=== PATIENT | female | born 1960 | race Caucasian/White ===

== ENCOUNTER 2024-06-01 17:09 | Inpatient (IN) | payer MEDICARE, OTHER, SELFPAY ==
[2024-06-01] VITALS (14 sets, daily range): BP systolic 120–172; BP diastolic 65–100; BMI 33.0
[2024-06-01 10:38] LABS: % Basophils 1.6 % (0-2); % Immature Granulocytes 0.2 % (0-0.5); % Lymphocytes 33.9 % (20.5-51.1); % Monocytes 11.2 % (1.7-9.3); % Neutrophils 50.1 % (42.2-75.2); Absolute Basophils 0.1 10^3/uL (0-0.2); Absolute Eosinophils 0.2 10^3/uL (0-0.7); Absolute Lymphocytes 1.9 10^3/uL (1.2-3.4); Absolute Monocytes 0.6 10^3/uL (0.1-0.6); Absolute Neutrophils 2.8 10^3/uL (1.4-6.5); Hematocrit 42.1 % (37.0-47.0); Hemoglobin 14.3 g/dL (12.0-16.0); Mean Corpuscular Hgb 29.8 pg (27.0-31.0); Mean Corpuscular Volume 87.7 fL (81.0-99.0); Mean Platelet Volume 10.3 fL (7.4-10.4); Nucleated Red Blood Cells % 0 %; Platelet Count 240 10^3/uL (130-400); Red Cell Dist. Width 13.2 % (11.5-14.5); White Blood Cell Count 5.6 10^3/uL (4.8-10.8)
--- NOTE | 2024-06-01 10:59 | ED.GENMED ---
History of Present Illness
General
Chief Complaint: Chest Pain
Source: patient and spouse
Exam Limitations: none
Time Seen by Provider: 06/01/24 10:15
Nursing documentation reviewed up to this point in time: agreed with
History of Present Illness
History of Present Illness:
Patient is a 63Y female who presents to the ER complaining of chest pain. Patient first noticed chest pain on Friday night after eating. It did resolve but she woke up early at 3 AM Friday morning with chest pain. She felt better yesterday
throughout the day but pain started again last night after eating(she had steak and vegetables) it did resolve but then after walking up a flight of steps later on in the night she developed chest pain again. This morning around 845 she felt pain
in the center of her chest and did feel pain in her jaw. At times she feels pain down left arm. She reports she 'just doesn't feel right .' She went to her family doctor's office and was sent here to the ER by EMS. She believes she may have
taken 1 aspirin at home and then was given 3 baby aspirin by her primary care physician. She currently still feels a little pressure in the center of her chest but this is much better than earlier this morning. She is not sure of the nitroglycerin
that was given to her by EMS helped her was told that her EKG today was different than her prior EKG done in 2017.
She is a former smoker and quit vaping nicotine several days ago.
No cardiac disease in family.
Review of Systems
Review of Systems
Allergies reviewed?: Yes
Other source history: family
All Other Systems: ROS reviewed and negative except as documented in HPI and ROS
Constitutional: Reports no symptoms; Denies fever, fatigue or chills
Respiratory: Reports trouble breathing (pt felt a little Short of breath with cp )
Cardiac: Reports chest pain; Denies diaphoresis, palpitations or syncope
ABD/GI: Reports no symptoms; Denies abdominal pain, nausea, vomiting or diarrhea
: Reports no symptoms
Musculoskeletal: Reports no symptoms
Skin: Reports no symptoms
Neurological: Reports no symptoms
Psychiatric: Reports no symptoms
Phy Exam
General Physical Exam
General Presentation: no apparent distress
General age: appears stated age
General Skin: warm and dry
General Habitus: normal
General Mental: alert
General Hydration: appears well hydrated
Eye Exam
Eye Exam: PERRL
Eye Exam General: PERRL: bilateral and EOM intact: bilateral
Pupil Exam: Bilateral: round and reactive
Cardiovascular Exam
Cardiovascular Exam: regular rate/rhythm, no murmur and normal peripheral pulses
Pulmonary Exam
Pulmonary Exam: lungs clear and no respiratory distress
Gastrointestinal Exam
Gastrointestinal Exam: non tender and soft
Neurological Exam
Neurological Exam: oriented x3
Scores
Heart Score for Chest Pain Patients
STEMI patient?: Not applicable
Course
Orders/Labs/Results
Orders:
Orders
06/01/24 10:06
Electrocardiogram (*1) Urgent
Reason for Study: Chest Pain
EKG- Treatment ONCE
06/01/24 10:20
Complete Blood Count/With Diff Urgent
06/01/24 11:04
Basic Metabolic Panel Urgent
Troponin I Urgent
06/01/24 11:35
Nitroglycerin Sublingual [Nitrostat (Sublingual)] 0.4 mg SL NOW STA
06/01/24 11:48
Electrocardiogram (*1) Urgent
Reason for Study: Chest Pain
06/01/24 12:18
Nitroglycerin Ointment [Nitro-Bid] 1 inch TOPICAL NOW STA
06/01/24 12:43
Chest [CR Chest - 2 Views ] Urgent
Comment:
Reason For Exam: cp
06/01/24 13:19
Electrocardiogram (*1) Stat
Reason for Study: Other
Other Reason for Exam: chest pain
EKG- Treatment ONCE
06/01/24 13:23
Troponin I Urgent
06/01/24 13:25
Echo 2D MMode Color/Doppler Urgent
Reason for Study: chest pain relieved w/ SL NTG
Cardiology Consult: Kathryn Foster
06/01/24 14:30
PTT Urgent
Comment: Obtain baseline before beginning heparin infusion if not already collected
Heparin 4,000 units IV NOW STA
Heparin 12187 Units/250 ml 25,000 units in 250 ml IV PER PROTOCOL
Weight to be used for heparin protocol in kilograms (kg):: 90
Protocol:: Cardiac Tx/Acute Coronary
PTT Goal Range to be used:: PTT 73 to 111 seconds
Order type:: Initial
INITIAL Infusion Dose (UNITS/KG/hr) & then follow protocol:: 15 units/kg/hr
Infusion Dose in UNITS/hr & then follow protocol (UNITS/hr):: 1,350
INFUSION RATE in mL/hr & then follow protocol (mL/hr):: 13.5
PTT less than or equal to 64 seconds:: Increase rate by 200 units/hr (+ 2 mL/hr)
PTT 64.1 to 72.9 seconds:: Increase rate by 100 units/hr (+ 1 mL/hr)
PTT 73 to 111 seconds:: Target Range. No change in rate.
PTT 111.1 to 130.9 seconds:: Decrease rate by 100 units/hr (- 1 mL/hr)
PTT 131 to 199.9 seconds:: HOLD for 1 hr. Then decrease rate by 200 units/hr (- 2 mL/hr)
PTT greater than or equal to 200 seconds:: HOLD for 2 hrs & Notify Provider. Then decrease by 200 units/hr (-
2 mL/hr)
Lab follow-up:: Each change, PTT q6h until 2 consecutive are therapeutic. Then PTT
daily.
Nursing to Place Non Medication Order As Directed
Physician Order: PTT 6 hours after initial start of Heparin infusion
06/01/24 14:32
Nitroglycerin Sublingual [Nitrostat (Sublingual)] 0.4 mg SL NOW STA
Abnormal Lab Results
06/01/24 06/01/24 06/01/24
10:20 11:04 13:23
Monocytes % 11.2 H %
(1.7-9.3)
BUN 19 H mg/dl
(7-17)
Glucose 105 H mg/dl
(70-99)
Troponin I 0.047 H* D ng/ml
06/01/24 10:20
06/01/24 11:04
Vital Signs
Initial and Last Documented VS:
Initial Vital Signs
Temp Pulse Resp BP Pulse Ox
97.8 F 62 16 145/73 99
06/01/24 10:07 06/01/24 10:07 06/01/24 10:07 06/01/24 10:07 06/01/24 10:07
Last Documented Vital Signs
Temp Pulse Resp BP Pulse Ox
97.8 F 73 13 172/88 98
06/01/24 10:07 06/01/24 14:30 06/01/24 14:30 06/01/24 14:35 06/01/24 14:30
MDM/Problems Addressed
Differential Diagnosis Includes:
Not limited to ACS. less likely reflux
MDM/Problems Addressed:
Pt is a 63 yr old female who has had intermittent chest pain since Friday for the past 2 days. It is radiated to her jaw and intermittently to her arm. Pain started again this morning she had an EKG at her doctor's office which was changed from
2017. EKG does show right bundle branch block. She has no shortness of breath. She was given a nitroglycerin while in the ambulance but was unsure if it helped her symptoms. Here patient reports pain started to increase and was up to a 4 out of
a 10. She was given 1 nitroglycerin here and feeling better. Stable blood pressure. initial troponin negative however will repeat troponin with patient's symptoms will admit and discuss with cardiology. does request, [facility] as he follows
with them.
Repeat cardiac troponin elevated to 0.047. Patient eval by cardiology. Patient back with intermittent chest pain. As per cardiology , Dr Foster will take to director of cath lab. IV heparin ordered. will give another nitro and d/c nitro paste.
pt to be adm to hosp service. d/c w/ DR Lee
Chronic conditions affecting care:
former smoker
*Radiology
Radiology exam reviewed: radiology read reviewed
*Pulse Oximetry
Patient hypoxic: no
*EKG
Interpreted by ED Provider?: Yes
Comparison EKG: no comparison EKG present
Heart Rate: 60
Rate: normal
Rhythm: sinus
QRS Pattern: right bundle branch block
*Critical Care Note
Total Time (30-74mins, 75-104mins- exclusive of procedures): Not Applicable
Patient Management
Discussion with other providers: Vocal Artist (cardiology )
ED Attending Note
-
Portions of this chart may have been created with voice recognition software.� Occasional wrong word or��sound alike� substitutions may have occurred due to the inherent limitations of voice recognition software.
Discharge Plan
Departure
Patient Disposition: Admit
Date of Disposition: 06/01/24
Time of Disposition: 14:38
Admit to: labor relations director
Admit to doctor: hospitalist
Presentation/result/management discussed w/ accepting MD/DO: Hospitalist
Patient with high blood pressure during this ER visit?: Yes
Covid-19: Not Applicable
Discharge Problem:
Acute non-ST elevation myocardial infarction (NSTEMI), Chest pain
Prescriptions:
No Action
levothyroxine [Synthroid] 100 mcg Tablet
100 mcg PO DAILY
doxycycline monohydrate 50 mg Capsule
50 mg PO DAILY
mupirocin 2 % Ointment
1 applic TOPICAL BID
aspirin 81 mg Tablet,Chewable
324 mg PO DAILYPRN PRN (Reason: CHEST PAIN)
Referrals:
Aris Duenas DO [Family Provider] -
Interventions
Interventions:
*Risk Screen - Suicide Last Done: 06/01/24 10:07
*General Assessment Last Done: 06/01/24 10:07
*Neglect/Abuse Screening Last Done: 06/01/24 10:07
ED- Fall Risk Assessment Last Done: 06/01/24 10:32
*ED COVID-19 Vaccine History Last Done: 06/01/24 10:32
ED- Cardiac Assessment Last Done: 06/01/24 10:32
Discharge Date and Time
Print Language: INDIAN
[2024-06-01 11:24] LABS: Blood Urea Nitrogen 19 mg/dl (7-17); Calcium 9.4 mg/dl (8.4-10.2); Carbon Dioxide 29 mmol/L (22-30); Chloride 104 mmol/L (98-107); Estimated Creatinine Clearance 87 ml/min; Glucose 105 mg/dl (70-99); Potassium 3.8 mmol/L (3.5-5.1); Sodium 141 mmol/L (135-145); eGFR > 60.00
[2024-06-01 11:36] LABS: Troponin I 0.032 ng/ml
[2024-06-01] MEDS: NITROSTAT (SUBLINGUAL) 0.4 MG SL ×2 (11:38→14:35)
[2024-06-01] MEDS: NITRO-BID 1 INCH TOPICAL (12:23)
[2024-06-01 14:02] LABS: Troponin I 0.047 ng/ml
--- NOTE | 2024-06-01 14:17 | CON.CAR ---
Addendum entered and electronically signed by Kathryn Foster MD 06/01/24 15:05:
I saw and examined the patient.
The Dermatology Physician's note was reviewed and I agree with the note.
Comment: Kirsten is a 63-year-old obese female with past medical history of hypothyroidism and former smoking, quit about 6-7 years ago who presents with 2-day history of off-and-on substernal chest discomfort, intermittently radiating under her
left breast and at times radiating to her jaw. Her symptoms are at times happening after intake of food but a lot of the other times are happening with exertion especially going a flight of stairs. She thought the symptoms would get better without
any interventions however he progressed over the weekend prompting her to come into the emergency department for further evaluation. Initial EKG showing sinus rhythm with right bundle branch block without acute ischemic changes. Troponin up
trended from 0.03 to up to 0.047 with intermittent recurrent chest discomfort despite 1 sublingual nitroglycerin which did seem to help with the chest discomfort.
Vital signs and lab work reviewed. On exam patient is in no acute distress, awake, alert and oriented x 3, regular rate, normal S1 and S2, lungs are clear to auscultation bilaterally, abdomen is obese but otherwise soft, nontender, nondistended
with active bowel sounds, warm extremities without significant edema.
Recommendations:
1. Given ongoing discomfort with symptoms concerning for typical angina especially with an exertional component slowly uptrending troponins, I would be concerned about a type I NSTEMI and therefore discussed pursuing invasive coronary angiogram to
rule out obstructive CAD.
2. Discussed with the emergency department about medically managing NSTEMI and had detailed discussion with patient in regards to risk and benefits of a heart catheterization and after detailed informed consent, patient was urgently taken to the
Head Concierge.
3. Further recommendations based on results of the heart catheterization.
4. Eventual echocardiogram to assess biventricular function and rule out significant valvular abnormalities.
5. Patient will be admitted to the hospitalist service.
Kathryn Foster MD, [facility]
Original Note:
Consultation
Consultation Request
Date/Time Consultation Requested: 06/01/2024
Date/Time Consultation Performed: 06/01/2024
Requesting Provider: Anna Munroe
Performing Provider: Nalini Quan PA-C for Dr. Foster
Reason for Consultation: chest pain x 2 days
Medical History
-
History of Present Illness:
Patient is a 63-year-old obese female with past medical history significant for hypothyroidism who presents to emergency department 06/01/2024 with 2 days of waxing and waning chest discomfort. Patient reports on 05/30/2024 she noted a discomfort in
her chest in the evening after eating dinner. Initially she thought it was indigestion. She went to bed that evening then awoke around 3 AM on 05/31/2024 with significant chest discomfort/pressure and took some antacids with some relief from
belching. The next day she noted waxing and waning chest discomfort. Once again after eating a meal of steak and vegetables pain became more intense and she started to note worsening chest pressure as well as shortness of breath with activities
like walking up steps. This morning 06/01/2023 patient notes significant chest discomfort associated with radiation into back, jaw and down left arm after dropping her grandson off at school. On presentation to emergency department she was provided
sublingual nitroglycerin with some improvement of chest pain but not complete resolution. EKG showed sinus rhythm with right bundle branch block. Initial troponin 0.032 however repeat troponin 0.047. Chest x-ray showed no acute cardiopulmonary
abnormality/process. Blood pressure initially 145/73. Due to ongoing symptoms with worsening of troponin patient started on heparin drip.
Past medical history:
Hypothyroidism
Past Medical History
Past Medical History: Other
Past Surgical History: (X 3)
Social History
Tobacco: Former Smoker (Quit 2017; was vaping up until 3 days prior to admission)
Alcohol: Occasional
Drug: None
Personal:
Living: With Family
Employment: Retired
Family History
Family History: Other (Paternal grandmother had coronary disease, maternal grandfather had pacemaker)
Allergies / Home Medications
Allergy/AdvReac Type Severity Reaction Status Date / Time
Penicillins Allergy Unknown Verified 06/01/24 10:07
�Medication �Instructions �Recorded �Confirmed �Type
aspirin 81 mg chewable tablet 324 mg PO DAILYPRN PRN CHEST PAIN 06/01/24 06/01/24 History
doxycycline monohydrate 50 mg 50 mg PO DAILY 06/01/24 06/01/24 History
capsule
levothyroxine 100 mcg tablet 100 mcg PO DAILY 06/01/24 06/01/24 History
(Synthroid)
mupirocin 2 % topical ointment 1 applic topical BID 06/01/24 06/01/24 History
Review of Systems
-
History Source: Patient
Physical Exam
Vital Signs
Temp Pulse Resp BP Pulse Ox
97.8 F 71 15 136/71 99
06/01/24 10:07 06/01/24 12:23 06/01/24 10:30 06/01/24 12:23 06/01/24 10:30
GEN: No distress, awake, Ox3, obese
HEENT: supple, anicteric, mmm
LUNGS: CTA, no wheezes/rales
CV: Reg, S1/S2, no murmur, rub or gallop
ABD: soft, BS+, NT/ND
EXT: No edema, clubbing or cyanosis
NEURO: Gross non-focal
SKIN: No rash, warm, dry, pink
Lab Results
06/01/24 10:20
06/01/24 11:04
Troponin I 0.047 ng/ml H* D 06/01/24 13:23
Impression / Plan
-
Oil Treater: None prior to arrival, initial consultation Dr. Foster
Impression:
Presented 06/01/2024 with 2 to 3 days of waxing and waning chest discomfort with associated shortness of breath, back and jaw pain
Abnormal troponin
Concern for NSTEMI
Hypothyroidism
History of tobacco abuse
x 3
Echo 06/01/2024: Ordered
Cardiac catheterization 06/01/2024: Pending
Plan:
-Presented 06/01/2024 with 2 to 3 days of waxing and waning chest discomfort with associated shortness of breath, back and jaw pain
-Initial troponin negative however repeat troponin 0.047, trend to peak
-continues to have 4-5 out of 10 chest discomfort despite nitroglycerin paste/patch raising concern for NSTEMI.
-Start IV heparin drip; load with ASA
-Discussed rationale for undergoing cardiac catheterization. Patient and spouse agreeable to proceed
-Echo ordered
-Will need to check lipids, not on statin prior to admission
Plan discussed with patient, patient's , emergency department physician/nurse practitioner
Data Reviewed
-
EKG: Report Reviewed by me, Discussed with Physician, Discussed with Patient and Discussed with Family
Radiology: Report Reviewed by me, Discussed with Physician, Discussed with Patient and Discussed with Family
Labs: Labs Reviewed by me, Discussed with Physician, Discussed with Patient and Discussed with Family
[2024-06-01] MEDS: HEPARIN 4000 UNITS IV (14:45)
--- NOTE | 2024-06-01 15:05 | ITS.CL.CATH ---
Orthopedic Cast Specialist - Catheterization
Cardiac Catheterization
Procedure Report:
LEFT HEART CATHETERIZATION AND CORONARY INTERVENTION
Date of Procedure: June 01, 2024
Referring: [place] emergency department
PROCEDURES:
1. Left heart catheterization, coronary angiogram.
2. Ultrasound-guided access.
3. Successful percutaneous coronary artery intervention of a hazy 90% mid left circumflex artery/OM2 stenosis with 2.75 x 15 mm Medtronic [place] frontier drug-eluting stent, postdilated using a 2.75 x 12 mm NC balloon at 18 adela with an excellent
angiographic result.
INDICATION: Concern for NSTEMI
ACCESS: Right radial artery, 6 Tristanian sheath, under ultrasound guidance.
HEMODYNAMICS : (mmHg)
AO (s/d) : 124/76
LV (s/d) : 134/8
LVEDP : 11
CORONARY FINDINGS
DOMINANCE: Right
LEFT MAIN: Left main artery is a large-caliber vessel which gives rise to the left anterior descending artery and the left circumflex artery. There is minimal luminal irregularities.
LEFT ANTERIOR DESCENDING: The left anterior descending artery is a medium to large caliber vessel which gives rise to 1 major diagonal branch as it courses through the anterior interventricular groove towards the apex. There is smooth 30% proximal
LAD stenosis.
CIRCUMFLEX: The left circumflex artery is a medium caliber vessel which gives rise to 2 major obtuse marginal branch. Mid left circumflex artery has a hazy 90% stenosis extending into OM 2 which is thought to be the culprit of presenting NSTEMI and
was intervened on.
RIGHT CORONARY ARTERY: The right coronary artery is a large-caliber, dominant vessel which has rise to the right posterior descending artery and the right posterolateral system. Distal RCA has a 50% focal stenosis.
CORONARY INTERVENTION: The left coronary artery was selectively engaged using a 6 Tristanian EBU 3.5 guide catheter. Additional heparin was given to maintain a therapeutic ACT throughout the case. A 190 cm 0.014' power turn flex coronary wire was
carefully navigated across the culprit lesion into OM 2. The lesion was predilated using a 2.5 x 12 mm semicompliant balloon at 14 adela with good expansion. The lesion was subsequently stented using a 2.75 x 15 mm Medtronic [place] frontier
drug-eluting stent and postdilated using a 2.75 x 12 mm NC trek balloon at 18 adela with an excellent angiographic result. Patient was loaded with 180 mg of Brilinta at the end of the case. No acute complications.
SEDATION: 49 minutes of procedural sedation was utilized. An independent medical assistant supervisor was present to assist with and help manage the patient's level of consciousness and physiologic status.
RADIATION SUMMARY: Fluoro Time (min): 10.2, Dose (mGy): 586.93, DAP (Gy.cm2) : 35.3
Closure Device: Vascular band over right radial artery, 10 cc of air.
CONCLUSIONS
1. Successful percutaneous coronary artery intervention of a hazy 90% mid left circumflex artery/OM2 stenosis with 2.75 x 15 mm Medtronic [place] frontier drug-eluting stent, postdilated using a 2.75 x 12 mm NC balloon at 18 adela with an excellent
angiographic result.
2. 50% focal distal RCA stenosis.
3. Normal LVEDP at 11 mmHg
RECOMMENDATIONS
1. Wean radial band per protocol.
2. Uninterrupted dual antiplatelet therapy in the setting of acute coronary syndrome with daily baby aspirin and Brilinta 90 mg twice daily along with high intensity statin and beta-sofiya as tolerated.
3. Full echocardiogram to assess biventricular function and rule out any significant valvular abnormalities.
4. Aggressive management of cardiovascular risk factors and goal-directed medical therapy for nonobstructive coronary artery disease.
5. Eventual referral for outpatient cardiac rehab.
Kathryn Foster MD, FAC, [facility]
[2024-06-01 15:10] LABS: APTT 29.1 Sec (23.4-35.0)
[2024-06-01 15:25] LABS: ACT-LR - POC 171 Seconds (116-155)
[2024-06-01 15:38] LABS: ACT-LR - POC 226 Seconds (116-155)
[2024-06-01 15:50] LABS: ACT-LR - POC 274 Seconds (116-155)
--- NOTE | 2024-06-01 16:39 | HPS.HSE ---
Family Physician
-
Family Physician: Aris Duenas
Chief Complaint
-
Chest pain
History of Present Illness
63 y/o F with PMHx:
Obesity due to excess calories, BMI 34
Acquired hypothyroidism
who p/w CC chest pain. Over the past few days the patient has had multiple episodes of stable angina. She has had retrosternal chest pain with exertion. She also had symptoms of indigestion. Today she walked her grandson into school and had
further retrosternal and left-sided chest pain that radiated into her jaw. She went to her primary care doctor's office. They did an ECG and gave her an aspirin and sent her to the hospital. Upon arrival to the hospital she had ongoing chest
pain. Her initial troponin was negative but her second troponin was positive. She was taken to the [facility] and was found to have a 90% occlusion of her left circumflex. A stent was placed. Currently she reports some pressure in her right chest
but states it could be related to neck stiffness in the 'bed and pillows here.' She feels overall better than when she arrived to the hospital. Currently denies shortness of breath, nausea, vomiting, diarrhea, headache, rash, strokelike symptoms.
Medical History
Past Medical History
Past Medical History: Reports Other (as per HPI)
Past Surgical History: Reports Other (N/A)
Social History
Tobacco: Former Smoker (quit 2017, was vaping until 3 days [employer] OPER[employer])
Alcohol: Occasional
Drug: None
Family History
Family History: Not pertinent
Allergies / Home Medications
Allergies reflects when Allergies were last updated in [employer].
Home Medications with original date entered in [employer]
Allergy/Medication List:
Allergies
Allergy/AdvReac Type Severity Reaction Status Date / Time
Penicillins Allergy Unknown Verified 06/01/24 10:07
Home Medications
aspirin 81 mg chewable tablet 324 mg PO DAILYPRN PRN CHEST PAIN 06/01/24
doxycycline monohydrate 50 mg capsule 50 mg PO DAILY 06/01/24
levothyroxine 100 mcg tablet (Synthroid) 100 mcg PO DAILY 06/01/24
mupirocin 2 % topical ointment 1 applic topical BID 06/01/24
Review of Systems
-
A 12 point ROS was completed and negative except as noted: Yes
Constitutional: Reports No Symptoms
Physical Exam
Vital Signs
Vital Signs
Temp Pulse Resp BP Pulse Ox
97.8 F 62 18 120/100 97
06/01/24 10:07 06/01/24 16:35 06/01/24 15:00 06/01/24 16:35 06/01/24 16:35
Physical Exam
General: Other (.)
Laboratory Results
-
06/01/24 10:20
06/01/24 11:04
Laboratory Results
APTT 29.1 Sec (23.4-35.0) 06/01/24 14:35
Total Bilirubin Cancelled 06/01/24 10:20
AST Cancelled 06/01/24 10:20
ALT Cancelled 06/01/24 10:20
Alkaline Phosphatase Cancelled 06/01/24 10:20
Troponin I 0.047 ng/ml H* D 06/01/24 13:23
Impression/Plan
-
Gen: NAD, AAOx3.
Eyes: EOMI, PERRLA, no scleral icterus.
Neck: supple.
CV: RRR, +S1/S2, no m/r/g.
Resp: CTAB, no rales, wheezes, or rhonchi.
Abd: +BS, soft, NT, ND
Skin: No rashes.
Neuro: CN 2-12 intact, non-focal.
Psych: Normal mood and affect.
ECG (read by me): NSR @ 65, L-axis deviation, RBBB, TW flattening III, aVF, TWi V1-V2
Type I NSTEMI:
-trop increased to 0.047. As pt was having ongoing CP she was taken to cath and was found to have 90% lesion in LCx, stented
-cont ASA/Brilinta/BB/statin
-cont heparin gtt
-check echo
-trend trop
-monitor on tele
Obesity due to excess calories:
-Affects all aspects of care
-Encourage weight loss
Acquired hypothyroidism:
-Continue Levoxyl
FULL/Heparin gtt
[2024-06-01] MEDS: NSS 1000 IV (17:13)
[2024-06-01] MEDS: LIPITOR 80 MG PO (17:48)
[2024-06-01] MEDS: LOVENOX SC (17:48)
--- NOTE | 2024-06-01 19:38 | PTCARENOTE ---
Received pt post cath. Right radial site w/ R band intact. VSS. Pt denies any chest pain. Orders noted. Will monitor.
[2024-06-02] MEDS: SYNTHROID 100 MCG PO (04:53)
[2024-06-02 04:55] LABS: Hematocrit 33.7 % (37.0-47.0); Hemoglobin 11.7 g/dL (12.0-16.0); Mean Corp Hgb Conc. 34.7 g/dL (33.0-37.0); Mean Corpuscular Hgb 29.1 pg (27.0-31.0); Mean Corpuscular Volume 83.8 fL (81.0-99.0); Mean Platelet Volume 10.1 fL (7.4-10.4); Platelet Count 224 10^3/uL (130-400); Red Blood Cell Count 4.02 10^6/uL (4.20-5.40); Red Cell Dist. Width 13.4 % (11.5-14.5); White Blood Cell Count 6.7 10^3/uL (4.8-10.8)
[2024-06-02 05:25] LABS: Troponin I 0.514 ng/ml
[2024-06-02 05:26] LABS: Blood Urea Nitrogen 16 mg/dl (7-17); Calcium 9.1 mg/dl (8.4-10.2); Carbon Dioxide 25 mmol/L (22-30); Chloride 107 mmol/L (98-107); Estimated Creatinine Clearance 86 ml/min; Glucose 103 mg/dl (70-99); HDL Cholesterol 46 mg/dl; LDL Cholesterol, Calculated 117 mg/dl; Potassium 3.8 mmol/L (3.5-5.1); Sodium 141 mmol/L (135-145); Total Cholesterol 192 mg/dl (50-199); Triglyceride 145 mg/dl (10-149); Very Low Density Lipoprotein 29 mg/dl (0-30); eGFR > 60.00
[2024-06-02 06:36] VITALS: BP 116/67
[2024-06-02 08:16] VITALS: BP 110/97
[2024-06-02] MEDS: BRILINTA 90 MG PO ×2 (08:47→20:17)
[2024-06-02] MEDS: TOPROL XL 25 MG PO (08:47)
[2024-06-02] MEDS: VIBRAMYCIN 50 MG PO (08:47)
[2024-06-02] MEDS: LOW STRENGTH ASPIRIN 81 MG PO (08:47)
--- NOTE | 2024-06-02 09:21 | PTCARENOTE ---
Rec'd pt this shift awake and alert. Pt denies pain, denies sob. Rt radial site EMMA, no bleeding noted. AM meds given. NSR on monitor. See worklist for VS/I and O and assessments.
--- NOTE | 2024-06-02 09:46 | W.PN.CARDCBS ---
Addendum entered and electronically signed by Kathryn Foster MD 06/02/24 11:12:
I saw and examined the patient.
The Merchandise Worker's note was reviewed and I agree with the note.
Comment: Overall patient is doing well with no acute issues overnight. Her dressing on the wrist felt a bit tight and was taken off this morning and her discomfort has resolved since then. She has been walking within the room with no recurrent
symptoms.
Vital signs and lab work reviewed. Troponin slowly continue to trend up. On exam patient is awake, alert, oriented x 3, regular rate, normal S1 and S2, no murmurs, rubs or gallops, abdomen is soft, nontender, nondistended with active bowel sounds,
lungs are clear to auscultation bilaterally, warm extremities without significant edema.
.
Recommendations:
1. Given presentation of NSTEMI/ACS, patient will be on uninterrupted dual antiplatelet therapy for recent mid left circumflex/OM 2 PCI. She will continue high intensity statin and beta-sofiya as tolerated.
2. Continue to trend Trops until peak.
3. Echocardiogram completed earlier today which was reviewed by me showing normal biventricular function without significant valvular abnormalities.
4. Continue to monitor on telemetry with anticipated discharge home tomorrow.
3. Encourage ambulation and referral for outpatient cardiac rehab.
Kathryn Foster MD, [facility], [facility]
Original Note:
Today's Communication / Plan
-
s/p circ/OM PCI
trend trops to peak
echo
asa, brilinta, statin, toprol
cardiac rehab
Impression / Plan
-
Cardboard Cutter: None prior to arrival, initial consultation Dr. Foster
Impression:
Presented 06/01/2024 with 2 to 3 days of waxing and waning chest discomfort with associated shortness of breath, back and jaw pain
NSTEMI s/p circ/OM PCI 06/01/24
RBBB
Hypothyroidism
History of tobacco abuse
x 3
Family history of CAD
Echo 06/01/2024: Ordered
Plan:
-Presented 06/01/2024 with 2 to 3 days of waxing and waning chest discomfort with associated shortness of breath, back and jaw pain
-Status post cardiac catheterization 06/01/2024 with subtotally occluded circumflex/OM status post successful stenting. Residual 50% RCA lesion, plan for medical management
-Right wrist site clean dry and intact, with mild ecchymoses and soreness reported by patient
-Continue aspirin, Brilinta. Hemoglobin 11.7
-LDL 117. Continue high intensity statin started this admission
-In sinus rhythm on review of telemetry overnight. Continue Toprol
-Awaiting echo
-Cardiac rehab
-Discussed dietary modifications, had been on keto diet prior to admission and successfully lost 30 pounds
-Likely for discharge in a.m.
-Discussed with patient and family at bedside
Progress Note - Cardboard Cutter
Subjective
Date of Service: June 02, 2024
No issues overnight
Objective
Labs:
06/02/24 04:36
06/02/24 04:36
Labs
Hgb 11.7 g/dL (12.0-16.0) L 06/02/24 04:36
Hct 33.7 % (37.0-47.0) L 06/02/24 04:36
Plt Count 224 10^3/uL (130-400) 06/02/24 04:36
APTT 29.1 Sec (23.4-35.0) 06/01/24 14:35
Sodium 141 mmol/L (135-145) 06/02/24 04:36
Potassium 3.8 mmol/L (3.5-5.1) 06/02/24 04:36
BUN 16 mg/dl (7-17) 06/02/24 04:36
Creatinine 0.7 mg/dL (0.6-1.0) 06/02/24 04:36
Glucose 103 mg/dl (70-99) H 06/02/24 04:36
Troponins
06/01/24 06/01/24 06/01/24
10:20 11:04 13:23
Troponin I Cancelled 0.032 0.047 H* D
06/01/24 06/02/24
20:00 04:36
Troponin I 0.200 H* D 0.514 H*
Vital Signs and I&O:
Vital Signs
Temp Pulse Resp BP Pulse Ox
98.3 F 67 20 110/87 98
06/02/24 08:17 06/02/24 09:00 06/02/24 08:17 06/02/24 08:47 06/02/24 09:15
Vital Signs
Temp Pulse Resp BP Pulse Ox
98.3 F 67 20 110/87 98
06/02/24 08:17 06/02/24 09:00 06/02/24 08:17 06/02/24 08:47 06/02/24 09:15
Intake & Output
05/31/24 06/01/24 06/02/24 06/03/24
07:59 07:59 07:59 07:59
Intake Total 870 / 870 500 / 500
Balance 870 / 870 500 / 500
Physical Exam
Physical Exam
GEN: No distress, awake, alert, oriented x3
HEENT: supple, anicteric, mmm, eomi
LUNGS: CTA B/L, no wheezes/rales
CV: Reg, S1/S2, no murmur
ABD: soft, BS+, NT/ND
EXT: No cyanosis, clubbing, edema
NEURO: Gross non-focal
SKIN: Warm, pink, dry. No rash. R wrist site soft, c/d/i, mild ecchymoses
--- NOTE | 2024-06-02 10:51 | CM ---
Addendum entered by Essence Robert RN 06/02/24 14:14:
Patient is agreeable to cost.
Original Note:
Pricing on Brilinta is $221.00 a month. Patient has already met their $280 deductible.
--- NOTE | 2024-06-02 11:09 | W.CARD.POSTP ---
Post PCI Follow Up
Procedure
Procedure/Date: 06/01/2024: Successful PCI of a hazy 90% mid left circumflex artery/OM2 stenosis with 2.75 x 15 mm Medtronic [place] DARCIE x1
Subjective: no cp, sob
Site
Site: Radial: Right and No ht/bleeding, distal pulses palpable (mild ecchymosis)
Tele / EKG
SR RBBB no ectopy
Labs
06/02/24 04:36
06/02/24 04:36
APTT 29.1 Sec (23.4-35.0) 06/01/24 14:35
Triglycerides 145 mg/dl (10-149) 06/02/24 04:36
LDL Cholesterol, Calc 117 mg/dl 06/02/24 04:36
VLDL Cholesterol, Calc 29 mg/dl (0-30) 06/02/24 04:36
HDL Cholesterol 46 mg/dl 06/02/24 04:36
DAPT Medication
DAPT Medication: Aspirin 81mg daily and Tricagrelor 90 mg BID
Case Management checking parr: Yes (cost $221/mo, will need to discuss if affordable, if not switch to plavix)
Plan
NSTEMI
DAPT but Brilinta $221, will need to switch to Plavix with 600mg load in am followed by 75mg daily if unable to afford brilinta
Echo pending
f/u DCA 06/28 @10:40
[2024-06-02 11:14] VITALS: BP 153/76
--- NOTE | 2024-06-02 11:20 | W.PN.HOSP.TC ---
Today's Communication/Plan
-
see bold
Assessment / Plan
Assessment / Plan
Gen: NAD, AAOx3.
Eyes: EOMI, PERRLA, no scleral icterus.
Neck: supple.
CV: araceli reg rhythm, +S1/S2, no m/r/g.
Resp: CTAB, no rales, wheezes, or rhonchi.
Abd: +BS, soft, NT, ND
Skin: No rashes.
Neuro: CN 2-12 intact, non-focal.
Psych: Normal mood and affect.
ECG (read by me): NSR @ 65, L-axis deviation, RBBB, TW flattening III, aVF, TWi V1-V2
Echo: EF 55-60%, normal RV sz/fxn, trace TR
Type I NSTEMI:
-trop increased to 0.047. As pt was having ongoing CP she was taken to cath and was found to have 90% lesion in LCx, stented
-cont ASA/Brilinta/BB/statin
-Echo above
-trend trop, most recent trop 0.514
-monitor on tele
Obesity due to excess calories:
-Affects all aspects of care
-Encourage weight loss
Acquired hypothyroidism:
-Continue Levoxyl
Pt's updated at bedside.
FULL/Lovenox
Anticipated Discharge: Within 24 hours
Subjective/Interval History
-
Date of Service: June 02, 2024
Denies CP/SOB. c/o headache.
Objective Data
-
Labs:
Laboratory Results
06/02/24
04:36
WBC 6.7
Hgb 11.7 L
Hct 33.7 L
Plt Count 224
Sodium 141
Potassium 3.8
Chloride 107
Carbon Dioxide 25
BUN 16
Creatinine 0.7
Glucose 103 H
Calcium 9.1
Vital Signs:
Vital Signs
Temp Pulse Resp BP Pulse Ox
98.3 F 67 20 110/87 98
06/02/24 08:17 06/02/24 09:00 06/02/24 08:17 06/02/24 08:47 06/02/24 09:15
I&O
06/01/24 06/02/24 06/03/24
06:59 06:59 06:59
Intake Total 870 / 870 500 / 500
Balance 870 / 870 500 / 500
[2024-06-02 11:32] LABS: Glycohemoglobin (HgbA1c) 5.2 % (4.0-5.6)
[2024-06-02 11:44] LABS: Troponin I 0.403 ng/ml
[2024-06-02 15:02] VITALS: BP 128/84
[2024-06-02] MEDS: LOVENOX 40 MG SC (17:54)
[2024-06-02] MEDS: LIPITOR 80 MG PO (17:54)
[2024-06-02] MEDS: TYLENOL 650 MG PO (18:05)
[2024-06-02 18:32] VITALS: BP 131/93
[2024-06-02] MEDS: COLACE 100 MG PO (20:48)
[2024-06-02 22:32] VITALS: BP 130/72
[2024-06-03 04:14] VITALS: BP 134/62
[2024-06-03] MEDS: SYNTHROID 100 MCG PO (04:25)
--- NOTE | 2024-06-03 04:31 | PTCARENOTE ---
Pt AAOx3 VSS NSR on monitor. Denies any pain, discomfort or SOB. Independently ambulating outside the room.
[2024-06-03 05:01] LABS: Hematocrit 34.6 % (37.0-47.0); Mean Corp Hgb Conc. 34.7 g/dL (33.0-37.0); Mean Corpuscular Hgb 29.2 pg (27.0-31.0); Mean Corpuscular Volume 84.2 fL (81.0-99.0); Mean Platelet Volume 10.5 fL (7.4-10.4); Platelet Count 229 10^3/uL (130-400); Red Blood Cell Count 4.11 10^6/uL (4.20-5.40); Red Cell Dist. Width 13.3 % (11.5-14.5)
[2024-06-03 05:25] LABS: Blood Urea Nitrogen 16 mg/dl (7-17); Calcium 9.4 mg/dl (8.4-10.2); Carbon Dioxide 24 mmol/L (22-30); Chloride 104 mmol/L (98-107); Estimated Creatinine Clearance 86 ml/min; Glucose 98 mg/dl (70-99); Sodium 140 mmol/L (135-145); eGFR > 60.00
[2024-06-03 06:54] VITALS: BP 125/67
[2024-06-03] MEDS: TOPROL XL 25 MG PO (07:28)
[2024-06-03] MEDS: LOW STRENGTH ASPIRIN 81 MG PO (07:28)
[2024-06-03] MEDS: BRILINTA 90 MG PO (07:29)
[2024-06-03] MEDS: VIBRAMYCIN 50 MG PO (07:32)
[2024-06-03] MEDS: COLACE 100 MG PO (07:36)
--- NOTE | 2024-06-03 07:47 | W.PN.HOSP.TC ---
Today's Communication/Plan
-
d/c
Assessment / Plan
Assessment / Plan
Gen: NAD, AAOx3.
Eyes: EOMI, PERRLA, no scleral icterus.
Neck: supple.
CV: RRR, +S1/S2, no m/r/g.
Resp: remains CTAB, no rales, wheezes, or rhonchi.
Abd: +BS, soft, NT, ND
Skin: No rashes.
Neuro: remains CN 2-12 intact, non-focal.
Psych: Normal mood and affect.
ECG (read by me): NSR @ 65, L-axis deviation, RBBB, TW flattening III, aVF, TWi V1-V2
Echo: EF 55-60%, normal RV sz/fxn, trace TR
Type I NSTEMI:
-trop increased to 0.047. As pt was having ongoing CP she was taken to cath and was found to have 90% lesion in LCx, stented
-cont ASA/Brilinta/BB/statin
-Echo above
-trop peaked post-cath at 0.514, now trending down
-cleared for d/c by cardiology
Obesity due to excess calories:
-Affects all aspects of care
-Encourage weight loss
Acquired hypothyroidism:
-Continue Levoxyl
FULL/Lovenox
Total time spent on d/c = 31 min. This included today's physical exam, progress note, review of laboratory and diagnostic data, preparation of discharge documents and prescriptions, and discussions about the pt's hospital course and discharge plan
with the patient and other medical transcription supervisor involved in the patient's care.
Anticipated Discharge: Today
Subjective/Interval History
-
Date of Service: June 03, 2024
Denies CP/SOB.
Objective Data
-
Labs:
Laboratory Results
06/03/24
04:21
WBC 7.0
Hgb 12.0
Hct 34.6 L
Plt Count 229
Sodium 140
Potassium 4.0
Chloride 104
Carbon Dioxide 24
BUN 16
Creatinine 0.7
Glucose 98
Calcium 9.4
Vital Signs:
Vital Signs
Temp Pulse Resp BP Pulse Ox
98.5 F 61 20 134/62 96
06/03/24 06:52 06/03/24 04:14 06/03/24 06:52 06/03/24 04:14 06/03/24 06:52
I&O
06/02/24 06/03/24 06/04/24
06:59 06:59 06:59
Intake Total 870 / 870 1800 / 1800
Balance 870 / 870 1800 / 1800
--- NOTE | 2024-06-03 08:20 | W.PN.CARDCBS ---
Addendum entered and electronically signed by Glenroy Martin MD 06/03/24 10:01:
Attending addendum: Patient seen and examined. PA note reviewed and findings independently confirmed by me. Briefly, this is a 63-year-old female who presented with 2 to 3-day history of waxing and waning chest tightness and elevated troponin.
She was referred for coronary angiography and underwent successful stenting of the circumflex with a 2.75 x 15 mm Medtronic [place] stent. She is now felt to be stable for discharge. She has been feeling well. Her Brilinta cost approximately $200
per month. She would like to maintain Brilinta at this time. It is possible that we can de-escalate therapy in 2 to 3 months to clopidogrel. For now, however, she will stay on the present. We discussed the need to remain compliant with dual
antiplatelet therapy including aspirin and the Brilinta. High intensity statin. Continue oral beta-sofiya.
Gen: awake, alert, oriented. NAD
HEENT: NC/AT, scelera anicteric
CV: RRR
Lungs: Clear anteriorly
Ext: No edema
Stable for discharge.
Aspirin on discharge was listed as PRN. This should be changed to aspirin 81mg daily
Original Note:
Today's Communication / Plan
-
continue asa, brilinta, toprol, lipitor
ok for DC from cardiac standpoint
cardiac rehab
OP cardiac followup arranged
Impression / Plan
-
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 Foster
Impression:
Presented 06/01/2024 with 2 to 3 days of waxing and waning chest discomfort with associated shortness of breath, back and jaw pain
NSTEMI s/p circ/OM PCI 06/01/24
RBBB
Hypothyroidism
History of tobacco abuse
x 3
Family history of CAD
Echo 06/01/2024: Technically difficult study, EF 55 to 60%, mild concentric LVH, MAC, mild MR, aortic sclerosis, trace TR
Plan:
-Presented 06/01/2024 with 2 to 3 days of waxing and waning chest discomfort with associated shortness of breath, back and jaw pain. trop peaked at 0.5
-Status post cardiac catheterization 06/01/2024 with subtotally occluded circumflex/OM status post successful stenting. Residual 50% RCA lesion, plan for medical management
-Right wrist site clean dry and intact
-Continue aspirin, Brilinta. patient agreeable to cost. Hemoglobin 12
-LDL 117. Continue high intensity statin started this admission
-In sinus rhythm on review of telemetry overnight. Continue Toprol
-echo with results as above, discussed with patient 06/03
-Cardiac rehab
-ok for DC today. OP cardiac follow up arranged
-d/w hospitalist via TT
Progress Note - Teacher Of The Deaf
Subjective
Date of Service: June 03, 2024
Did not sleep well. Otherwise doing well post stenting. No complaints
Objective
Labs:
06/03/24 04:21
06/03/24 04:21
Labs
Hgb 12.0 g/dL (12.0-16.0) 06/03/24 04:21
Hct 34.6 % (37.0-47.0) L 06/03/24 04:21
Plt Count 229 10^3/uL (130-400) 06/03/24 04:21
APTT 29.1 Sec (23.4-35.0) 06/01/24 14:35
Sodium 140 mmol/L (135-145) 06/03/24 04:21
Potassium 4.0 mmol/L (3.5-5.1) 06/03/24 04:21
BUN 16 mg/dl (7-17) 06/03/24 04:21
Creatinine 0.7 mg/dL (0.6-1.0) 06/03/24 04:21
Glucose 98 mg/dl (70-99) 06/03/24 04:21
Troponins
06/01/24 06/01/24 06/01/24
10:20 11:04 13:23
Troponin I Cancelled 0.032 0.047 H* D
06/01/24 06/02/24 06/02/24
20:00 04:36 11:01
Troponin I 0.200 H* D 0.514 H* 0.403 H*
Vital Signs and I&O:
Vital Signs
Temp Pulse Resp BP Pulse Ox
98.5 F 61 20 134/62 96
06/03/24 06:52 06/03/24 04:14 06/03/24 06:52 06/03/24 04:14 06/03/24 06:52
Vital Signs
Temp Pulse Resp BP Pulse Ox
98.5 F 61 20 134/62 96
06/03/24 06:52 06/03/24 04:14 06/03/24 06:52 06/03/24 04:14 06/03/24 06:52
Intake & Output
06/01/24 06/02/24 06/03/24 06/04/24
07:59 07:59 07:59 07:59
Intake Total 870 / 870 1800 / 1800
Balance 870 / 870 1800 / 1800
Physical Exam
Physical Exam
GEN: No distress, awake, alert, oriented x3
HEENT: supple, anicteric, mmm, eomi
LUNGS: CTA B/L, no wheezes/rales
CV: Reg, S1/S2, no murmur
ABD: soft, BS+, NT/ND
EXT: No cyanosis, clubbing, edema
NEURO: Gross non-focal
SKIN: Warm, pink, dry. No rash. R wrist site soft, c/d/i, mild ecchymoses
--- NOTE | 2024-06-03 10:55 | PTCARENOTE ---
Pt received with no c/o of chest pain or sob. OOB independently. Right radial site WNL and open to air. Pt discharged to home with her . Discharge instructions given and reviewed with good understanding.
--- NOTE | 2024-06-03 13:05 | W.DCSUMMARY ---
Discharge Summary
Discharge Data
Date of Admission: 06/01/24
Date of Discharge: 06/03/24
-
Pending Results: No
Hospital Course
Primary diagnoses:
Acute Type I [id number] myocardial infarction
Angioplasty with stent to left circumflex artery
Secondary diagnoses:
Obesity due to excess calories:
Acquired hypothyroidism
Consultants:
Cardiology
Imaging:
ECG (read by me): NSR @ 65, L-axis deviation, RBBB, TW flattening III, aVF, TWi V1-V2
Echo: EF 55-60%, normal RV sz/fxn, trace TR
Hospital course: 63-year-old female who presented with a chief complaint of chest pain as outlined in the H&P done on admission. On admission the patient's troponin increased to 0.047. She was having ongoing chest pain and was immediately taken to
the Sewing Machine Tester. She was found to have a 90% lesion in the LCx which was stented. She was treated with ASA/Brilinta/BB/statin. Echo above. Troponin peaked post-cath at 0.514 and then trended down. She was cleared for discharge by cardiology.
Discharge Plan
-
Patient Disposition: Home (Routine Discharge)
Discharge Diagnosis/Procedures: Acute uaj-BU-snjajyvvd myocardial infarction, Angioplasty with stent to left circumflex artery
Diet: Low Cholesterol
Driving Restrictions: No driving for 24 hours
Other Services: Cardiac Rehab
Stand Alone Forms: DC Instructions- Cath/EP Lab
Referrals:
[facility] [Outside] - 06/22/24 11:00 am
(Cardiac Rehab Orientation and First Exercise appointment is on Saturday June 22, 2024 at 11 AM. Please complete preadmission surveys via email prior to arrival.
The Cardiac Rehab gym is located on the first floor of the [facility].)
Erika Tariq CRNP [Specified Professional Personl] - 06/28/24 10:40 am
Aris Duenas DO [Family Provider] - in one to two months
Additional Discharge Medication Instructions: Take aspirin and brilinta every day!
Prescriptions:
New
doxycycline hyclate 50 mg Capsule
50 mg PO DAILY Qty: 0 0RF
Brilinta 90 mg Tablet
90 mg PO BID Qty: 60 0RF
atorvastatin 80 mg Tablet
80 mg PO QPM Qty: 30 0RF
metoprolol succinate 25 mg Tablet Extended Release 24 Hr
25 mg PO DAILY Qty: 30 0RF
aspirin 81 mg Tablet,Chewable
81 mg PO DAILY Qty: 0 0RF
Continued
levothyroxine [Synthroid] 100 mcg Tablet
100 mcg PO DAILY
mupirocin 2 % Ointment
1 applic TOPICAL BID
Discontinued
aspirin 81 mg Tablet,Chewable
81 mg PO DAILYPRN PRN (Reason: CHEST PAIN)
Discharge Orders:
Discharge Patient (As Directed); Ordered 06/03/24
Ordered By: Austen Lee
Care Plan Goals
Care Plan Goals:
Problem: Readiness for enhanced knowledge related to diagnosis and treatment plan
Goal: Understand your diagnosis and treatment plan needs, including medications if applicable.
Instructions: Know your diagnosis, underlying causes and treatment plan options, including medications if applicable. Consult with your health care team to learn about your diagnosis and treatment plan, including medications if applicable.
Discharge Date and Time
Discharge Date/Time: 06/03/24 11:17
Print Language: ZAMBIAN
== END 2024-06-03 11:17 | disposition home or self-care (01) | DRG 322 ==
LOC: IVU 17:09
PROVIDERS: Nurse Practitioner; Nurse Practitioner Adult Health; ADMITTING PHYSICIAN Internal Medicine; EMERGENCY PHYSICIAN Emergency Medicine; FAMILY PHYSICIAN Family Medicine; OTHER PHYSICIAN Internal Medicine Interventional Cardiology
PROC: B2111ZZ Fluoroscopy of Multiple Coronary Arteries using Low Osmolar Contrast (ICD-10-PCS; 2024-06-01)
PROC: 027034Z Dilation of Coronary Artery, One Artery with Drug-eluting Intraluminal Device, Percutaneous Approach (ICD-10-PCS; 2024-06-01)
PROC: 4A023N7 Measurement of Cardiac Sampling and Pressure, Left Heart, Percutaneous Approach (ICD-10-PCS; 2024-06-01)
DX: I21.4 Non-ST elevation (NSTEMI) myocardial infarction (principal); E03.9 Hypothyroidism, unspecified; E66.09 Other obesity due to excess calories; Z68.34 Body mass index [BMI] 34.0-34.9, adult; I45.10 Unspecified right bundle-branch block; I25.118 Atherosclerotic heart disease of native coronary artery with other forms of angina pectoris; R03.0 Elevated blood-pressure reading, without diagnosis of hypertension; Z79.890 Hormone replacement therapy; Z79.899 Other long term (current) drug therapy; Z87.891 Personal history of nicotine dependence; Z88.0 Allergy status to penicillin
CPT/HCPCS: 71046; 80048; 80061; 83036; 84484; 85025; 85027; 85730; 93005; 93306; 93458; 96374; 99152; 99153; 99285; 99406; C1725; C1874; C1894; C9600; Q9967

== ENCOUNTER 2024-06-24 10:39 | Outpatient (RCR) | payer MEDICARE, OTHER, SELFPAY | END 2024-06-24 23:59 | disposition home or self-care (01) | LOC: CRHB 10:39 | PROVIDERS: ATTENDING PHYSICIAN Internal Medicine Interventional Cardiology | DX: I25.10 Atherosclerotic heart disease of native coronary artery without angina pectoris (principal); Z95.5 Presence of coronary angioplasty implant and graft; I25.2 Old myocardial infarction | CPT/HCPCS: G0422; G0423 ==

== ENCOUNTER → 2024-06-28 12:20 | Outpatient (REF) | payer MEDICARE, OTHER, SELFPAY | LOC: RAD 12:20 | PROVIDERS: ATTENDING PHYSICIAN Nurse Practitioner; FAMILY PHYSICIAN Family Medicine | DX: I72.9 Aneurysm of unspecified site (principal); R60.9 Edema, unspecified | CPT/HCPCS: 93931 ==

== ENCOUNTER → 2024-07-14 07:49 | Outpatient (REF) | payer MEDICARE, OTHER, SELFPAY | LOC: DHCBC/DCA 07:49 | PROVIDERS: ATTENDING PHYSICIAN Nurse Practitioner; FAMILY PHYSICIAN Family Medicine | DX: R06.02 Shortness of breath (principal); R07.89 Other chest pain | CPT/HCPCS: 78452; 93017; A9500; J2785 ==

== ENCOUNTER 2024-07-28 13:40 | Outpatient (RCR) | payer MEDICARE, OTHER, SELFPAY | END 2024-07-28 23:59 | disposition home or self-care (01) | LOC: CRHB 13:40 | PROVIDERS: ATTENDING PHYSICIAN Internal Medicine Interventional Cardiology | DX: I25.10 Atherosclerotic heart disease of native coronary artery without angina pectoris (principal); Z95.5 Presence of coronary angioplasty implant and graft; I25.2 Old myocardial infarction | CPT/HCPCS: G0422; G0423 ==

== ENCOUNTER 2024-08-19 10:09 | Outpatient (RCR) | payer MEDICARE, OTHER, SELFPAY | END 2024-08-19 23:59 | disposition home or self-care (01) | LOC: CRHB 10:09 | PROVIDERS: ATTENDING PHYSICIAN Internal Medicine Interventional Cardiology | DX: I25.2 Old myocardial infarction (principal); Z95.5 Presence of coronary angioplasty implant and graft | CPT/HCPCS: G0422; G0423 ==

== ENCOUNTER 2024-09-09 10:59 | Outpatient (RCR) | payer MEDICARE, OTHER, SELFPAY | END 2024-09-09 23:59 | disposition home or self-care (01) | LOC: CRHB 10:59 | PROVIDERS: ATTENDING PHYSICIAN Internal Medicine Interventional Cardiology | DX: I25.2 Old myocardial infarction (principal); Z95.5 Presence of coronary angioplasty implant and graft | CPT/HCPCS: G0422; G0423 ==

== ENCOUNTER → 2025-01-11 10:13 | Outpatient (REF) | payer MEDICARE, OTHER, SELFPAY | LOC: HWRCS 10:13 | PROVIDERS: ATTENDING PHYSICIAN Internal Medicine Interventional Cardiology; FAMILY PHYSICIAN Family Medicine | DX: R07.89 Other chest pain (principal); R06.09 Other forms of dyspnea | CPT/HCPCS: 93306 ==

== ENCOUNTER 2025-07-31 21:26 | Emergency (ER) | payer MEDICARE, OTHER, SELFPAY ==
[2025-07-31 21:28] VITALS: BP 160/74
--- NOTE | 2025-07-31 22:57 | ED.GENMED ---
History of Present Illness
General
Chief Complaint: Musculo-Skeletal Complaint
Source: patient and spouse
Exam Limitations: none
Time Seen by Provider: 07/31/25 21:51
Nursing documentation reviewed up to this point in time: agreed with
History of Present Illness
History of Present Illness:
64-year-old female past ministry of hypertension hyperlipidemia presenting to the emergency department after tripping over a dog bone twisting her left ankle. Immediately felt pain to her ankle and foot having difficulty with ambulation since then.
Denies numbness weakness or any additional trauma.
Review of Systems
Review of Systems
Allergies reviewed?: Yes
All Other Systems: ROS reviewed and negative except as documented in HPI and ROS
Phy Exam
Physical Exam
Physical Exam:
GENERAL: Alert , in no apparent distress
EYE: pupils equal and reactive
NECK: Supple, no significant adenopathy.
ENT: o/p clr, mmm.
CARDIAC: Regular rate and rhythm .
LUNGS: Clear breath sounds bilaterally, no acute respiratory distress, no wheezes/rales/rhonchi
ABDOMEN: Soft, without focal tenderness, no r/g, no cvat
NEUROLOGICAL: Alert and oriented, no focal neuro deficits
SKIN: Warm and dry, skin intact.
MUSCULOSKELETAL: Tender palpation to the lateral malleolus as well as the base of the fifth metatarsal region otherwise the remainder of the foot without significant tenderness no bruising no breaks in the skin. Able to move the ankle with good
range of motion no tenderness throughout the bolivar or knee. No edema, well perfused.
PSYCH: Normal and appropriate interaction.
Course
Orders/Labs/Results
Orders:
Orders
07/31/25 21:30
Ankle, left 3 view CR [CR Ankle - Left Min 3 Views ] Urgent
Comment:
Reason For Exam: pain
07/31/25 21:43
CR Foot - Left Min 3 Views Urgent
Reason For Exam: PAIN
07/31/25 22:43
Ortho Boot Left- Treatment ONCE
Short or tall?: Tall
07/31/25 22:53
Crutches-Treatment ONCE
Vital Signs
Initial and Last Documented VS:
Initial Vital Signs
Temp Pulse Resp BP Pulse Ox
98.4 F 78 16 160/74 98
07/31/25 21:28 07/31/25 21:28 07/31/25 21:28 07/31/25 21:28 07/31/25 21:28
Last Documented Vital Signs
Temp Pulse Resp BP Pulse Ox
98.4 F 78 16 160/74 98
07/31/25 21:28 07/31/25 21:28 07/31/25 21:28 07/31/25 21:28 07/31/25 21:28
MDM/Problems Addressed
MDM/Problems Addressed:
64-year-old female presenting to the emergency department today with concerns of left ankle and foot discomfort after tripping at home. Denies any additional injuries. Does appear to have a fracture of the distal fibula as well as the base of the
fifth metatarsal on x-ray. Patient was given a cam boot and advised for minimal weightbearing until orthopedic follow-up. Return precautions given.
*Pulse Oximetry
SaO2: 98
Oxygen Mode of Delivery: Room air
Patient hypoxic: no (98)
*Critical Care Note
Total Time (30-74mins, 75-104mins- exclusive of procedures): Not Applicable
ED Attending Note
-
Portions of this chart may have been created with voice recognition software.� Occasional wrong word or��sound alike� substitutions may have occurred due to the inherent limitations of voice recognition software.
Discharge Plan
Departure
Patient Disposition: Home (Routine Discharge)
Date of Disposition: 07/31/25
Time of Disposition: 23:00
Patient with high blood pressure during this ER visit?: No
Condition: Good
Covid-19: Not Applicable
Discharge Problem:
Fracture of distal end of fibula, Metatarsal bone fracture
Instructions: Ankle Fracture (DC)
Prescriptions:
No Action
levothyroxine [Synthroid] 100 mcg Tablet
100 mcg PO DAILY
mupirocin 2 % Ointment
1 applic TOPICAL BID
Brilinta 90 mg Tablet
90 mg PO BID Qty: 60 0RF
atorvastatin 80 mg Tablet
80 mg PO QPM Qty: 30 0RF
metoprolol succinate 25 mg Tablet Extended Release 24 Hr
25 mg PO DAILY Qty: 30 0RF
aspirin 81 mg Tablet,Chewable
81 mg PO DAILY Qty: 0 0RF
Referrals:
Austen Stewart MD [Active, Orthopedics] - Follow up in 5-7 days
UNKNOWN - PT DOES,NOT KNOW [Family Provider]
Activity Restrictions/Additional Instructions:
You came to the emergency department today with concerns of ankle and foot pain. You are found to have a fracture of the distal fibula as well as the proximal metatarsal. Please wear the cam boot rest ice and elevate help with symptoms and
otherwise follow-up with orthopedics in the next week or so. Return for any worsening, new or concerning symptoms.
Interventions
Interventions:
*Risk Screen - Suicide Last Done: 07/31/25 21:28
*General Assessment Last Done: 07/31/25 21:28
*Neglect/Abuse Screening Last Done: 07/31/25 21:28
*ED- Fall Risk Assessment Last Done: 07/31/25 21:28
*ED COVID-19 Vaccine History Last Done: 07/31/25 21:28
*ED Influenza Vaccine History Last Done: 07/31/25 21:28
Discharge Date and Time
Print Language: SYRIAC
[2025-07-31 23:17] VITALS: BP 125/62
== END 2025-07-31 23:22 | disposition home or self-care (01) ==
LOC: EMR 21:26
PROVIDERS: EMERGENCY PHYSICIAN Emergency Medicine
DX: S82.832A Other fracture of upper and lower end of left fibula, initial encounter for closed fracture (principal); S92.355A Nondisplaced fracture of fifth metatarsal bone, left foot, initial encounter for closed fracture; W18.09XA Striking against other object with subsequent fall, initial encounter; X50.1XXA Overexertion from prolonged static or awkward postures, initial encounter; I10 Essential (primary) hypertension; E78.5 Hyperlipidemia, unspecified
CPT/HCPCS: 99283; 73610; 73630